=== PATIENT | male | born 1995 | race Caucasian/White ===

== ENCOUNTER 2020-11-07 14:42 | Emergency (ER) | payer OTHER ==
[~2020-11-07] VITALS: Ht 167.6 cm; Wt 61.2 kg
[2020-11-07 14:48] VITALS: BP 138/81
--- NOTE | 2020-11-07 15:40 | NUR ---
PATIENT HERE FOR REQUEST FOR CLEARANCE FOR DETOX CENTER. PATIENT ALERT AND ORIENTED X4. NO RESPIRATORY DISTRESS NOTED. RESPIRATIONS EVEN AND UNLABORED. AWAITING MD LOVING.
[2020-11-07] MEDS ORDERED: LORAZEPAM 0.5 MG TABLET ONE (17:04)
[2020-11-07] MEDS: LORAZEPAM 1 MG TABLET PO ONE (17:05)
--- NOTE | 2020-11-07 17:54 | NUR ---
Patient discharged to home in stable condition. Written and verbal after care instructions given. Patient verbalizes understanding of instruction.
== END 2020-11-07 17:56 | disposition home or self-care (01) ==
LOC: ER 14:47
DX: F19.20 Other psychoactive substance dependence, uncomplicated (principal)

== ENCOUNTER → 2021-02-28 | Emergency (ER) | payer OTHER ==
[~2021-02-28] VITALS: Ht 170.2 cm; Wt 72.6 kg
[2021-02-28 17:33] VITALS: BP 143/76
--- NOTE | 2021-02-28 17:49 | NUR ---
COVID SPECIMEN OBTAINED AND SENT TO LAB.
--- NOTE | 2021-02-28 17:51 | NUR ---
Patient discharged to home in stable condition. Written and verbal after care instructions given. Patient verbalizes understanding of instruction.
--- NOTE | 2021-02-28 17:52 | NUR ---
ROBYN AERROR UNABLE TO DEPART.
--- NOTE | 2021-03-03 09:30 | NUR ---
PT WAS CALLED TO BE GIVEN COVID PCR RESULTS. PT DID NOT ANSWER AND VOICEMAIL WAS FULL. WILL ATTEMPT TO CALL BACK LATER.
--- NOTE | 2021-03-03 09:56 | NUR ---
PT MOTHER WAS CALLED TO GET IN TOUCH WITH SON TO CALL BACK TO GIVE HIM HIS TEST RESULTS.
== END | disposition home or self-care (01) ==
LOC: ER 18:15
DX: U07.1 COVID-19 (principal); R03.0 Elevated blood-pressure reading, without diagnosis of hypertension
CPT/HCPCS: 99283; C9803; U0003